=== PATIENT | male | born 1940 | race Caucasian/White ===

== ENCOUNTER → 2018-09-06 16:03 | Outpatient (CLI) | payer MEDICARE, OTHER, SELFPAY ==
--- NOTE | 2018-09-06 16:18 | CT_ITS ---
STUDY: CT ABDOMEN AND PELVIS WITH CONTRAST REASON FOR EXAM: Male, 78 years old. Left lower quadrant pain RADIATION DOSAGE (If Supplied By Facility): CTDIvol = ( 16.52 ) mGy, DLP = ( 767.64 ) mGycm TECHNIQUE: Transaxial images were obtained from the dome of the diaphragm to the symphysis pubis with oral contrast. 100 ml of Isovue 300 contrast was administered. Sagittal and coronal images were reconstructed. Individualized dose optimization techniques were used for this CT. 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 The visualized portions of the heart are within normal limits. Normal liver. There are multiple gallstones. Normal spleen. Normal pancreas. Normal bilateral adrenal glands. Normal right kidney. Normal left kidney. Incidental note is made of a retroaortic left renal vein There is a small hiatal hernia. Normal small intestine. Normal colon. There is non-visualization of the appendix. Normal abdominal aorta. Normal inferior vena cava. Normal retroperitoneum. There is a mildly enlarged prostate impinging upon the inferior bladder There is a fat-containing right inguinal hernia. There are diffuse degenerative changes of the visualized lumbar spine. CT/Abdomen/Pelvis WITH Contrast IMPRESSION: Cholelithiasis, no CT evidence of acute cholecystitis No CT evidence of an acute inflammatory process Prostate enlargement Degenerative bony changes Electronically Signed: Marcelo Ruth MD at 18:59 EST , Service support ,
[2018-09-06 16:48] LABS: Absolute Lymphocyte Count 2.35 X10^3/ul (0.83-4.51); Absolute Neutrophil Count 3.6 X10^3/uL (2.0-7.7); Basophil# 0.01 X10^3/uL; Basophil% 0.2 % (0-1); Eosinophil# 0.16 X10^3/uL; Eosinophils% 2.4 % (0-5); Hematocrit 42.2 % (40-54); Hemoglobin 14.2 g/dl (13.0-16.5); Lymphocyte # 2.35 X10^3/ul (4.0); Lymphocyte % 35.6 % (19-41); Mean Corp Hgb Conc 33.6 g/gl (32-36); Mean Corpuscular Hgb 30.7 pg (27.0-32.0); Mean Corpuscular Volume 91.1 fL (80-94); Mean Platelet Vol. 10.7 fl (6.2-12.0); Monocyte# 0.48 X10^3/uL; Monocyte% 7.3 % (0-10); Neutrophil # 3.59 X10^3/uL (2.7-7.7); Neutrophil % 54.3 % (47-70); Platelet Count 162 K/mm3 (150-450); RBC Distribution Width CV 13.6 % (11.6-14.6); RBC Distribution Width SD 44.6 fl (35.1-43.9); Red Blood Count 4.63 M/mm3 (4.6-6.2); White Blood Count 6.6 K/mm3 (4.4-11.0)
[2018-09-06 17:00] LABS: POSITIVE COUNT NO; POSITIVE DIFFERENTIAL NO; POSITIVE MORPHOLOGY NO
[2018-09-06 17:11] LABS: ALB/GLOB Ratio 1.1 RATIO (0.9-2.4); AST(SGOT) 29 U/L (15-37); Alanine Aminotransfer ALT/SGPT 29 U/L (16-61); Albumin, Serum 3.8 g/dL (3.2-5.0); Alkaline Phosphatase 43 U/L (45-117); Anion Gap 8 (5-15); BUN 23 mg/dL (7-18); BUN/Creat Ratio 18.3 RATIO (10-20); Chloride 106 mmol/L (98-107); Creatinine, Serum 1.26 mg/dL (0.70-1.30); EST Glomerular Filtration Rate 59 mL/min (>60); Est Glom Filt Rate - Afr Amer 71 mL/min (>60); Globulin 3.6 g/dL (2.2-4.2); Glucose 91 mg/dL (74-106); Potassium 4.5 mmol/L (3.5-5.1); Protein, Total 7.4 g/dL (6.4-8.2); Sodium Level 140 mmol/L (136-145)
== END ==
PROVIDERS: Family Provider Family Medicine Geriatric Medicine; PCP Family Medicine Geriatric Medicine; Referring Provider Family Medicine Geriatric Medicine; Visit Provider Family Medicine Geriatric Medicine
DX: R10.9 Unspecified abdominal pain (principal)
CPT/HCPCS: 36415; 74177; 80053; 85025; Q9967

== ENCOUNTER → 2018-09-07 11:23 | Outpatient (CLI) | payer MEDICARE, OTHER, SELFPAY ==
[2018-09-09 12:07] LABS: Lyme IgG P18 Ab Absent (.); Lyme IgG P23 Ab Absent (.); Lyme IgG P28 Ab Absent (.); Lyme IgG P30 Ab Absent (.); Lyme IgG P39 Ab Absent (.); Lyme IgG P41 Ab Absent (.); Lyme IgG P45 Ab Absent (.); Lyme IgG P58 Ab Absent (.); Lyme IgG P66 Ab Absent (.); Lyme IgG P93 Ab Absent (.); Lyme IgM P23 Ab Absent (.); Lyme IgM P39 Ab Absent (.); Lyme IgM P41 Ab Absent (.)
[2018-09-09 13:18] LABS: Lyme IgG WB Interpretation Negative (.); Lyme IgM WB Interpretation Negative (.)
== END ==
PROVIDERS: Family Provider Family Medicine Geriatric Medicine; PCP Family Medicine Geriatric Medicine; Visit Provider Family Medicine Geriatric Medicine
DX: A69.20 Lyme disease, unspecified (principal)
CPT/HCPCS: 36415; 86617

== ENCOUNTER → 2018-09-17 07:29 | Outpatient (CLI) | payer MEDICARE, OTHER, SELFPAY ==
--- NOTE | 2018-09-17 07:37 | ECHOD_ITS ---
Reason For Study: SOB Procedure This was a 2D Doppler, Color Flow transthoracic echocardiogram. The study was technically difficult. Exam performed in department. Left Ventricle Normal LV size. Left ventricular systolic function is normal. The estimated ejection fraction is 60 %. Transmitral diastolic flow velocities suggest moderate (stage 2) diastolic dysfunction (pseudonormal pattern). No regional wall motion abnormalities noted. Right Ventricle Normal RV size. Normal systolic function. Atria Normal left atrium. Normal right atrium. No doppler evidence for ASD. Mitral Valve There is mild mitral annular calcification. Normal mitral valve. Trivial mitral valve insufficiency. Tricuspid Valve Normal tricuspid valve. Trivial tricuspid valve insufficiency. Right ventricular systolic pressure estimated to be 31 mmHg. Aortic Valve Trisinus/trileaflet aortic valve. Mild focal aortic valve thickening. Pulmonic Valve The pulmonic valve is not well visualized. Mild (1+) pulmonic valve insufficiency. Great Vessels Normal sized aortic root. Pericardium/Pleural No pericardial effusion. MMode/2D Measurements & Calculations LVIDd: 4.6 cm IVSd: 1.2 cm Ao root diam: 3.6 cm LVIDs: 3.2 cm LVPWd: 1.3 cm RVDd: 3.0 cm FS: 29.8 % LAV(MOD-bp): 45.2 ml LVAd ap4: 22.6 cm2 SV(MOD-sp4): 43.0 ml LAV(MOD-bp) Indexed: 23.6 ml/m2 EDV(MOD-sp4): 62.2 ml LAV(MOD-sp2): 41.8 ml EDV(sp4-el): 63.2 ml LAV(MOD-sp4): 45.3 ml LVAs ap4: 11.1 cm2 ESV(MOD-sp4): 19.2 ml ESV(sp4-el): 19.8 ml EF(MOD-sp4): 69.1 % EF(sp4-el): 68.7 % SV(sp4-el): 43.4 ml LA A4 area: 17.9 cm2 LA dimension(2D): 3.3 cm RA A4 area: 16.5 cm2 Time Measurements MV dec time: 0.29 sec Doppler Measurements & Calculations MV E max kwame: 65.1 cm/sec Lat Peak E' Kwame: 7.9 cm/sec Med Peak E' Kwame: 6.7 cm/sec MV A max kwame: 59.9 cm/sec E/E' lat: 8.3 E/E' med: 9.7 MV E/A: 1.1 Ao V2 max: 129.3 cm/sec LV V1 max: 114.9 cm/sec PA V2 max: 90.8 cm/sec Ao max P.7 mmHg LV V1 max P.3 mmHg PI end-d kwame: 107.2 cm/sec TR max kwame: 263.9 cm/sec TR max P.9 mmHg Interpretation Summary The study was technically difficult. Left ventricular systolic function is normal. The estimated ejection fraction is 60 %. There is mild mitral annular calcification. Trivial mitral valve insufficiency. Trivial tricuspid valve insufficiency. Mild focal aortic valve thickening. Mild (1+) pulmonic valve insufficiency. Right ventricular systolic pressure estimated to be 31 mmHg. Transmitral diastolic flow velocities suggest diastolic dysfunction (pseudonormal pattern). Ordering Physician: Brannon Mckeon Referring Physician: Brannon Mckeon Chi Performed By: Aarti Caballero, ANTONIACS, RVT
== END ==
PROVIDERS: Family Provider Family Medicine Geriatric Medicine; PCP Family Medicine Geriatric Medicine; Referring Provider Family Medicine Geriatric Medicine; Visit Provider Family Medicine Geriatric Medicine
DX: R06.02 Shortness of breath (principal)
CPT/HCPCS: 93306

== ENCOUNTER → 2018-10-19 15:20 | Outpatient (CLI) | payer MEDICARE, OTHER, SELFPAY ==
--- OUTSIDE RECORDS SUMMARY | 2019-01-21 04:08 | XMS RPT_ITS ---
:1940 Author Organization OHIP Care Team Providers Name Role Phone Navneet Argueta Attending Unavailable Mike, Brannon Chi Referring Unavailable Mkie, Brannon Chi Attending Unavailable Mike, Brannon Chi Referring Unavailable Mike, Brannon Chi Primary Care Unavailable Mike, Brannon Chi Attending Unavailable Mike, Brannon Chi Primary Care Unavailable Mike, Brannon Chi Referring Unavailable Mike, Brannon Chi Attending Unavailable Mike, Brannon Chi Primary Care Unavailable Mike, Brannon Chi Attending Unavailable Mike, Brannon Chi Referring Unavailable Mike, Brannon Chi Primary Care Unavailable Mike, Brannon Chi Attending Unavailable Mike, Brannon Chi Primary Care Unavailable PROBLEMS PROBLEMS DATE TYPE CONDITION / CODE ATTENDING STATUS SOURCE 11/15/2018 Unknown 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, 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, Community unspecified / Hospital E55.9(ICD-10) Repository 11/15/2018 Unknown I10 - Essential Mike, Brannon Chi Active [facility] (primary) Community hypertension / Hospital I10(ICD-10) Repository 10/19/2018 Unknown R68.83 - Chills Mike, Brannon Chi Active [facility] (without fever) / Community R68.83(ICD-10) Hospital Repository 10/12/2018 Unknown R06.02 - Shortness MoodisNavneet bell Active [facility] of breath / Community R06.02(ICD-10) Hospital Repository 09/07/2018 Unknown 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, Community unspecified / Hospital A69.20(ICD-10) Repository 09/06/2018 Unknown R10.9 - Brannon Mckeon Chi Active [facility] Unspecified Community abdominal pain / Hospital R10.9(ICD-10) Repository PROCEDURES PROCEDURES No Procedure Records FoundRESULTS RESULTS CBC W/DIFF, AUTOMATED Collected: 11/15/2018 Status: F Source: AMY 3:06 PM [facility] REPOSITORY TYPE CODE TESTS RESULT OUT OF RANGE REFERENCE UNITS LAB L100.1000 4.4-11.0 K/mm3 Normal WBC 5.7 LAB L100.1200 4.6-6.2 M/mm3 Normal RBC 4.75 LAB L100.1300 13.0-16.5 g/dl Normal HGB 14.4 LAB L100.1400 40-54 % Normal HCT 44.2 LAB L100.1500 80-94 fL Normal MCV 93.1 LAB L100.1600 27.0-32.0 pg Normal MCH 30.3 LAB L100.1700 32-36 g/gl Normal MCHC 32.6 LAB L100.1810 11.6-14.6 % Normal RDW CV 14.3 LAB L100.1820 35.1-43.9 fl High RDW SD 46.7 LAB L100.1900 150-450 K/mm3 Normal PLT 191 LAB L100.2000 6.2-12.0 fl Normal MPV 10.3 LAB L100.2100 47-70 % Normal NEUT% 53.6 LAB L100.2200 19-41 % Normal LY% 34.3 LAB L100.2300 0-10 % Normal MONO% 8.8 LAB L100.2400 0-5 % Normal EO% 2.7 LAB L100.2500 0-1 % Normal BASO% 0.4 LAB L100.2550 0.0-0.9 % Normal IM GRAN % 0.200 Result Comment: IG% - Immature Granulocytes (promyelocytes, myelocytes and metamyelocytes) > 1% indicates that a LEFT SHIFT is Present. LAB L100.2620 2.0-7.7 X10 3/uL Normal Absolute Neut 3.0 LAB L100.2720 0.83-4.51 X10 3/ul Normal Absolute Lymph 1.94 Performed By: #### L100.0100 #### [facility] [address] [place], [address] VITAMIN D,25 HYDROXY Collected: 11/15/2018 Status: F Source: [place] 3:06 PM [facility] REPOSITORY TYPE CODE TESTS RESULT OUT OF REFERENCE UNITS RANGE LAB L506.1000 29.95-100.01 ng/mL Low Vitamin D 23.8 25-OH Result Comment: Vitamin D 25(OH) Status Range Deficiency <20 ng/mL (50nmol/L) Insuffciency 20 - 30 ng/mL (50 - 75 nmol/L) Sufficiency 30 - 100 ng/mL (75 - 250 nmol/L) Toxicity >100 ng/mL (>250 nmol/L) Performed By: #### L506.1000 #### [facility] [address] [place], [address] COMPREHENSIVE METABOLIC Collected: 11/15/2018 Status: F Source: [facility] 3:06 PM [facility] REPOSITORY TYPE CODE TESTS RESULT OUT OF RANGE REFERENCE UNITS LAB L501.0100 74-106 mg/dL Normal GLU 90 Result Comment: Please note revised GLUCOSE reference range effective 2017. LAB L501.1000 7-18 mg/dL High BUN 19 LAB L501.1100 0.70-1.30 mg/dL Normal CREAT,SERUM 1.07 Result Comment: The validity of the calculated GFR AND GFRAA in patients over 70 years has not been determined. Clinical correlation is essential. LAB L501.1110 >60 mL/min Normal EST GFR 71 Result Comment: Non- GFR Calc LAB L501.1115 >60 mL/min Normal EST GFR - AA 86 Result Comment: GFR Calc LAB L501.1300 10-20 RATIO Normal BUN/CRE 17.8 LAB L501.1500 6.4-8.2 g/dL T Normal PROT 6.8 LAB L501.1800 3.2-5.0 g/dL Normal ALB 3.6 LAB L501.1950 2.2-4.2 g/dL Normal GLOB 3.2 LAB L501.2000 0.9-2.4 RATIO Normal A/G 1.1 LAB L501.2200 8.5-10.1 mg/dL CA Normal 9.2 LAB L501.4100 15-37 U/L Normal AST 27 LAB L501.4305 45-117 U/L Low ALK P 41 LAB L501.4405 16-61 U/L Normal ALT 31 LAB L501.4600 0.20-1.00 mg/dL T Normal BILI 0.40 LAB L501.5300 136-145 mmol/L NA Normal 143 LAB L501.5600 3.5-5.1 mmol/L K Normal 4.1 LAB L501.5900 98-107 mmol/L CL Normal 105 LAB L501.6100 21.0-32.0 mmol/L Normal CO2 27.0 LAB L501.6200 5-15 Normal GAP 11 Performed By: #### L500.4050, L501.9520 #### [facility] [address] [place], [place], [address] THYROID STIM HORMONE Collected: 11/15/2018 Status: F Source: [place] (TSH) 3:06 PM [facility] REPOSITORY TYPE CODE TESTS RESULT OUT OF RANGE REFERENCE UNITS LAB L501.9520 0.358-3.74 uIU/mL Normal TSH 1.71 Performed By: #### L500.4050, L501.9520 #### [facility] [address] [place], [address] Observed: 10/19/2018 Status: F Source: [place] RESPIRATORY PANEL 3:30 PM [facility] MOLECULAR REPOSITORY RP PANEL Normal Reference Range = Not Detected RESULTS CALLED TO /NURSE LINE 10/20/18 7589 Michelle Chan. Copy of report sent to Infection Control Printer MS#[id number] 10/20/18 0755 DCANNON. ADENOVIRUS Not Detected HUMAN METAPHNEUMO Not Detected INFLUENZA A Not Detected INFLUENZA A (SUBTYPE H1) Not Detected INFLUENZA A (SUBTYPE H3) Not Detected INFLUENZA B Not Detected PARAINFLUENZA 1 Not Detected PARAINFLUENZA 2 Not Detected PARAINFLUENZA 3 Not Detected PARAINFLUENZA 4 Not Detected RHINOVIRUS Positive for RHINOVIRUS by NAAT technology RSV A Not Detected RSV B Not Detected NAAT METHOD Testing was performed using nucleic acid amplification ORGANISM 1: RHINOVIRUS Performed By: #### M100.638 #### [facility] [address] [place], [address] ECHOCARDIOGRAM COMPLETE Observed: 09/17/2018 Status: F Source: [place] 4:09 PM [facility] REPOSITORY [facility] Cardiovascular Services [address] [place] [address] Echo Complete 09/17/18 0803 MR#: [id number] Acct: [id number] Name: JAVIER DONNELLY Rep #: [id number] : 1940 78 From: Navneet Argueta MD Attending Dr: Mike PASTRANA,Brannon Castro Status: REG CLI Ordering Dr: Brannon Mckeon MD Date: 09/17/18 Location: [facility] Sex: M C Admitted: Reason For Study: SOB Procedure This was a 2D Doppler, Color Flow transthoracic echocardiogram. The study was technically difficult. Exam performed in department. Left Ventricle Normal LV size. Left ventricular systolic function is normal. The estimated ejection fraction is 60 %. Transmitral diastolic flow velocities suggest moderate (stage 2) diastolic dysfunction (pseudonormal pattern). No regional wall motion abnormalities noted. Right Ventricle Normal RV size. Normal systolic function. Atria Normal left atrium. Normal right atrium. No doppler evidence for ASD. Mitral Valve There is mild mitral annular calcification. Normal mitral valve. Trivial mitral valve insufficiency. Tricuspid Valve Normal tricuspid valve. Trivial tricuspid valve insufficiency. Right ventricular systolic pressure estimated to be 31 mmHg. Aortic Valve Trisinus/trileaflet aortic valve. Mild focal aortic valve thickening. Pulmonic Valve The pulmonic valve is not well visualized. Mild (1+) pulmonic valve insufficiency. Great Vessels Normal sized aortic root. Pericardium/Pleural No pericardial effusion. MMode/2D Measurements AND Calculations LVIDd: 4.6 cm IVSd: 1.2 cm Ao root diam: 3.6 cm LVIDs: 3.2 cm LVPWd: 1.3 cm RVDd: 3.0 cm FS: 29.8 % LAV(MOD-bp): 45.2 ml LVAd ap4: 22.6 cm2 SV(MOD-sp4): 43.0 ml LAV(MOD-bp) Indexed: 23.6 ml/m2 EDV(MOD-sp4): 62.2 ml LAV(MOD-sp2): 41.8 ml EDV(sp4-el): 63.2 ml LAV(MOD-sp4): 45.3 ml LVAs ap4: 11.1 cm2 ESV(MOD-sp4): 19.2 ml ESV(sp4-el): 19.8 ml EF(MOD-sp4): 69.1 % EF(sp4-el): 68.7 % SV(sp4-el): 43.4 ml LA A4 area: 17.9 cm2 LA dimension(2D): 3.3 cm RA A4 area: 16.5 cm2 Time Measurements MV dec time: 0.29 sec Doppler Measurements AND Calculations MV E max kwame: 65.1 cm/sec Lat Peak E' Kwame: 7.9 cm/sec Med Peak E' Kwame: 6.7 cm/sec MV A max kwame: 59.9 cm/sec E/E' lat: 8.3 E/E' med: 9.7 MV E/A: 1.1 Ao V2 max: 129.3 cm/sec LV V1 max: 114.9 cm/sec PA V2 max: 90.8 cm/sec Ao max P.7 mmHg LV V1 max P.3 mmHg PI end-d kwame: 107.2 cm/sec TR max kwame: 263.9 cm/sec TR max P.9 mmHg Interpretation Summary The study was technically difficult. Left ventricular systolic function is normal. The estimated ejection fraction is 60 %. There is mild mitral annular calcification. Trivial mitral valve insufficiency. Trivial tricuspid valve insufficiency. Mild focal aortic valve thickening. Mild (1+) pulmonic valve insufficiency. Right ventricular systolic pressure estimated to be 31 mmHg. Transmitral diastolic flow velocities suggest diastolic dysfunction (pseudonormal pattern). Ordering Physician: Brannon Mckeon Referring Physician: Brannon Mckeon Chi Performed By: Aarti Caballero, MARIA D, RVT 09/17/18 1608 Date Navneet Argueta MD CC: Brannon Mckeon MD Date Dictated: 09/17/18 0803 Date Transcribed: 09/17/18 1608 Senior C Developer: Signed LYME ANTIBODIES,W BLOT Collected: 09/07/2018 Status: F Source: AMY 11:25 AM [facility] REPOSITORY TYPE CODE TESTS RESULT OUT OF RANGE REFERENCE UNITS LAB L7000.5920 . Normal P93 Ab Absent LAB L7000.5940 . Normal P66 Ab Absent LAB L7000.5960 . Normal P58 Ab Absent LAB L7000.5980 . Normal P45 Ab Absent LAB L7000.6000 . Normal P41 Ab Absent LAB L7000.6020 . Normal P39 Ab Absent LAB L7000.6040 . Normal P30 Ab Absent LAB L7000.6060 . Normal P28 Ab Absent LAB L7000.6080 . Normal P23 Ab Absent LAB L7000.6100 . Normal P18 Ab Absent LAB L7000.6200 . Normal LYME IgG Negative INTERP Result Comment: Positive: 5 of the following Borrelia-specific bands: 18,23,28,30,39,41,45,58, 66, and 93. Negative: No bands or banding patterns which do not meet positive criteria. LAB L7000.6320 . Normal P41 Ab Absent LAB L7000.6340 . Normal P39 Ab Absent LAB L7000.6360 . Normal P23 Ab Absent LAB L7000.6400 . Normal LYME IgM Negative INTERP Result Comment: Note: An equivocal or positive EIA result followed by a negative Western Blot result is considered NEGATIVE. An equivocal or positive EIA result followed by a positive Western Blot is considered POSITIVE by the CDC. Positive: 2 of the following bands: 23,39 or 41 Negative: No bands or banding patterns which do not meet positive criteria. Criteria for positivity are those recommended by CDC/ASTPHLD. p23=Osp C, j21=nondjljrf Note: Sera from individuals with the following may cross react in the Lyme Western Blot assays: other spirochetal diseases (periodontal disease, leptospirosis, relapsing fever, yaws, and pinta); connective autoimmune (Rheumatoid Arthritis and Systemic Lupus Erythematosus and also individuals with Antinuclear Antibody); other infections (Lydia Spotted Fever; Patricia-Valencia Virus, and Cytomegalovirus). Performed at: - [facility] [id number] Mine Equipment Design Engineer: Tri aPtel MD, Phone: [phone] Performed By: #### L7000.5800 #### [facility] (refer to report for specific site) refer to report for address and phone number ABDOMEN/PELVIS WITH Observed: 09/06/2018 Status: F Source: AMY CONTRAST 4:18 PM [facility] REPOSITORY [facility] Imaging Services [address] [place] [address] Abdomen/Pelvis WITH Contrast MR#: [id number] Acct: [id number] Name: JAVIER DONNELLY Rep #: [id number] : 1940 M 78 From: Felix Ruth MD PCP: Brannon Mckeon MD, Chi Status: REG CLI Study: Abdomen/Pelvis WITH Contrast Date of Exam: 09/06/18 Exam# [id number] Ordering Dr: Brannon Mckeon MD STUDY: CT ABDOMEN AND PELVIS WITH CONTRAST REASON FOR EXAM: Male, 78 years old. Left lower quadrant pain RADIATION DOSAGE (If Supplied By Facility): CTDIvol = ( 16.52 ) mGy, DLP = ( 767.64 ) mGycm TECHNIQUE: Transaxial images were obtained from the dome of the diaphragm to the symphysis pubis with oral contrast. 100 ml of Isovue 300 contrast was administered. Sagittal and coronal images were reconstructed. Individualized dose optimization techniques were used for this CT. 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 The visualized portions of the heart are within normal limits. Normal liver. There are multiple gallstones. Normal spleen. Normal pancreas. Normal bilateral adrenal glands. Normal right kidney. Normal left kidney. Incidental note is made of a retroaortic left renal vein There is a small hiatal hernia. Normal small intestine. Normal colon. There is non-visualization of the appendix. Normal abdominal aorta. Normal inferior vena cava. Normal retroperitoneum. There is a mildly enlarged prostate impinging upon the inferior bladder There is a fat-containing right inguinal hernia. There are diffuse degenerative changes of the visualized lumbar spine. CT/Abdomen/Pelvis WITH Contrast IMPRESSION: Cholelithiasis, no CT evidence of acute cholecystitis No CT evidence of an acute inflammatory process Prostate enlargement Degenerative bony changes Electronically Signed: Marcelo Ruth MD at 18:59 EST , Service support , CC: Brannon Mckeon MD Senior C Developer: Signed CBC W/DIFF, AUTOMATED Collected: 09/06/2018 Status: F Source: AMY 4:04 PM [facility] REPOSITORY TYPE CODE TESTS RESULT OUT OF RANGE REFERENCE UNITS LAB L100.1000 4.4-11.0 K/mm3 Normal WBC 6.6 LAB L100.1200 4.6-6.2 M/mm3 Normal RBC 4.63 LAB L100.1300 13.0-16.5 g/dl Normal HGB 14.2 LAB L100.1400 40-54 % Normal HCT 42.2 LAB L100.1500 80-94 fL Normal MCV 91.1 LAB L100.1600 27.0-32.0 pg Normal MCH 30.7 LAB L100.1700 32-36 g/gl Normal MCHC 33.6 LAB L100.1810 11.6-14.6 % Normal RDW CV 13.6 LAB L100.1820 35.1-43.9 fl High RDW SD 44.6 LAB L100.1900 150-450 K/mm3 Normal PLT 162 LAB L100.2000 6.2-12.0 fl Normal MPV 10.7 LAB L100.2100 47-70 % Normal NEUT% 54.3 LAB L100.2200 19-41 % Normal LY% 35.6 LAB L100.2300 0-10 % Normal MONO% 7.3 LAB L100.2400 0-5 % Normal EO% 2.4 LAB L100.2500 0-1 % Normal BASO% 0.2 LAB L100.2550 0.0-0.9 % Normal IM GRAN % 0.200 Result Comment: IG% - Immature Granulocytes (promyelocytes, myelocytes and metamyelocytes) > 1% indicates that a LEFT SHIFT is Present. LAB L100.2620 2.0-7.7 X10 3/uL Normal Absolute Neut 3.6 LAB L100.2720 0.83-4.51 X10 3/ul Normal Absolute Lymph 2.35 Performed By: #### L100.0100 #### [facility] [address] [place], [address] COMPREHENSIVE METABOLIC Collected: 09/06/2018 Status: F Source: [facility] 4:04 PM [facility] REPOSITORY TYPE CODE TESTS RESULT OUT OF RANGE REFERENCE UNITS LAB L501.0100 74-106 mg/dL Normal GLU 91 Result Comment: Please note revised GLUCOSE reference range effective 2017. LAB L501.1000 7-18 mg/dL High BUN 23 LAB L501.1100 0.70-1.30 mg/dL Normal CREAT,SERUM 1.26 Result Comment: The validity of the calculated GFR AND GFRAA in patients over 70 years has not been determined. Clinical correlation is essential. LAB L501.1110 >60 mL/min Low EST GFR 59 Result Comment: Non- GFR Calc LAB L501.1115 >60 mL/min Normal EST GFR - AA 71 Result Comment: GFR Calc LAB L501.1300 10-20 RATIO Normal BUN/CRE 18.3 LAB L501.1500 6.4-8.2 g/dL T Normal PROT 7.4 LAB L501.1800 3.2-5.0 g/dL Normal ALB 3.8 LAB L501.1950 2.2-4.2 g/dL Normal GLOB 3.6 LAB L501.2000 0.9-2.4 RATIO Normal A/G 1.1 LAB L501.2200 8.5-10.1 mg/dL CA Normal 9.0 LAB L501.4100 15-37 U/L Normal AST 29 LAB L501.4305 45-117 U/L Low ALK P 43 LAB L501.4405 16-61 U/L Normal ALT 29 LAB L501.4600 0.20-1.00 mg/dL T Normal BILI 0.50 LAB L501.5300 136-145 mmol/L NA Normal 140 LAB L501.5600 3.5-5.1 mmol/L K Normal 4.5 LAB L501.5900 98-107 mmol/L CL Normal 106 LAB L501.6100 21.0-32.0 mmol/L Normal CO2 26.0 LAB L501.6200 5-15 Normal GAP 8 Performed By: #### L500.4050 #### [facility] [address] [place], [address] ALLERGIES ALLERGIES DATE TYPE / CODE NAME / CODE REACTION SEVERITY SOURCE 06/16/2014 Drug No Known Unknown [facility] Allergy/4160 Allergies/F00 Hospital 59631(SNOMED 9669548(RXNOR Repository CT) M) ENCOUNTERS ENCOUNTERS ADMIT/DISCHARGE ACCOUNT ADMITTING ENCOUNTER LOCATION SOURCE NUMBER CLASS 11/15/2018 [id number] Ambulatory [place] [facility] 5 [facility] ing:POLAB3 Repository 10/19/2018 [id number] Ambulatory Amy [place] 2 [facility] ing:PSN Repository 09/17/2018 [id number] Ambulatory BMSBuilding:W [place] 7 [facility] Repository 09/17/2018 [id number] Ambulatory Amy [place] 3 [facility] ing:[facility] Repository 09/07/2018 [id number] [facility] ing:POLAB3 Repository 09/06/2018 [id number] Amb[facility] [place] 3 [facility] ing:CT Repository PAYERS PAYERS ENCOUNTER GUARANTOR PAYER SUBSCRIBER SOURCE 11/15/2018 JAVIER Yung Primary JAVIER Reyes [id number] S Insurance:MEDICARE BAHLDOB: [facility] ADOLFO PART A BPolicy [id number] [place], [place] Number: Repository [id number]: [phone] [id number] [phone] () Date:2018-11-15 11/15/2018 Secondary JAVIER Reyes Insurance:RURAL BAHLDOB: Community CARRIER BENEFIT [id number] Hospital PLANPolicy Number: Repository [id number] Date:3103-59-75ZV DANIELLA [address] [place] [address]BQ: 11/15/2018 Tertiary NOT GIVENUNK [place] Insurance:SELF PAY [facility] Number: Effective Repository Date:2018-11-15 10/19/2018 JAVIER E Primary JAVIER Reyes [id number] S Insurance:MEDICARE BAHLDOB: Community ADOLFO PART A [facility] [id number] [place] Number: Repository [id number]: [phone] [id number] [phone] () Date:2018-10-19 10/19/2018 Secondary JAVIER E [place] Insurance:RURAL BAHLDOB: Community CARRIER BENEFIT [id number] Hospital PLANPolicy Number: Repository [id number] Date:1233-46-11LP [facility] [address]KS: 10/19/2018 Tertiary NOT GIVENUNK [place] Insurance:SELF PAY [facility] Number: Effective Repository Date:2018-10-19 09/17/2018 JAVIER E Primary JAVIER E Amy [id number] S Insurance:MEDICARE BAHLDOB: Community ADOLFO PART A [id number] [place] Number[facility] Repository [address]Hvk: [phone] [id number] [phone] () Date:2018-09-07 09/17/2018 Secondary JAVIER E [place] Insurance:RURAL [facility] Community CARRIER BENEFIT [id number] Hospital PLANPolicy Number: Repository [id number] Date:1526-56-44HW [facility] [place] [place] [address]RI: 09/17/2018 Tertiary NOT GIVENUNK [place] Insurance:SELF PAY [facility] Number: Effective Repository Date:2018-09-17 09/17/2018 JAVIER E Primary JAVIER E [place] [id number] S Insurance:MEDICARE BAHLDOB: Community ADOLFO PART A [facility] [id number] [place] Number: Repository [id number]: [phone] [id number] [phone] (HP) Date:2018-09-07 09/17/2018 Secondary JAVIER E [place] Insurance:RURAL BAHLDOB: Community CARRIER BENEFIT [id number] Hospital PLANPolicy Number: Repository [id number] Date:0917-03-10[address] [place] [address]FF: 09/17/2018 Tertiary NOT GIVENUNK [place] Insurance:SELF PAY [facility] Number: Effective Repository Date:2018-09-07 09/07/2018 JAVIER E Primary JAVIER E Amy [id number] S Insurance:MEDICARE BAHLDOB: Community ADOLFO PART A [facility] [id number] Number: Repository [id number]: [phone] [id number] [phone] (HP) Date:2018-09-07 09/07/2018 Secondary JAVIER E [place] Insurance:RURAL [facility] Community CARRIER BENEFIT [id number] Hospital PLANPolicy Number: Repository [id number] Date:0426-66-45KT [facility] [address] [address]RK: 09/07/2018 Tertiary NOT GIVENUNK [place] Insurance:SELF PAY [facility] Number: Effective Repository Date:2018-09-07 09/06/2018 JAVIER E Primary JAVIER E Amy [id number] S Insurance:MEDICARE BAHLDOB: Community ADOLFO PART A [facility] [id number] Number: Repository [id number]: [phone] [id number] [phone] (HP) Date:2018-09-06 09/06/2018 Secondary JAVIER E [place] Insurance:RURAL [facility] Community CARRIER BENEFIT [id number] Hospital PLANPolicy Number: Repository [id number] Date:5739-28-25[address] [address]AV: 09/06/2018 Tertiary NOT GIVENUNK [place] Insurance:SELF PAY [facility] Number: Effective Repository Date:2018-09-06
== END ==
PROVIDERS: Family Provider Family Medicine Geriatric Medicine; PCP Family Medicine Geriatric Medicine; Referring Provider Family Medicine Geriatric Medicine; Visit Provider Family Medicine Geriatric Medicine
DX: R68.83 Chills (without fever) (principal)
CPT/HCPCS: 87633

== ENCOUNTER → 2018-11-15 15:04 | Outpatient (CLI) | payer MEDICARE, OTHER, SELFPAY ==
[2018-11-15 17:46] LABS: Absolute Lymphocyte Count 1.94 X10^3/ul (0.83-4.51); Basophil# 0.02 X10^3/uL; Basophil% 0.4 % (0-1); Eosinophil# 0.15 X10^3/uL; Eosinophils% 2.7 % (0-5); Hematocrit 44.2 % (40-54); Hemoglobin 14.4 g/dl (13.0-16.5); Lymphocyte # 1.94 X10^3/ul (4.0); Lymphocyte % 34.3 % (19-41); Mean Corp Hgb Conc 32.6 g/gl (32-36); Mean Corpuscular Hgb 30.3 pg (27.0-32.0); Mean Corpuscular Volume 93.1 fL (80-94); Mean Platelet Vol. 10.3 fl (6.2-12.0); Monocyte% 8.8 % (0-10); Neutrophil # 3.04 X10^3/uL (2.7-7.7); Neutrophil % 53.6 % (47-70); Platelet Count 191 K/mm3 (150-450); RBC Distribution Width CV 14.3 % (11.6-14.6); RBC Distribution Width SD 46.7 fl (35.1-43.9); Red Blood Count 4.75 M/mm3 (4.6-6.2); White Blood Count 5.7 K/mm3 (4.4-11.0)
[2018-11-15 17:51] LABS: POSITIVE COUNT NO; POSITIVE DIFFERENTIAL NO; POSITIVE MORPHOLOGY NO
[2018-11-15 18:12] LABS: Vitamin D,25 Hydroxy 23.8 ng/mL (29.95-100.01)
[2018-11-15 18:59] LABS: ALB/GLOB Ratio 1.1 RATIO (0.9-2.4); AST(SGOT) 27 U/L (15-37); Alanine Aminotransfer ALT/SGPT 31 U/L (16-61); Albumin, Serum 3.6 g/dL (3.2-5.0); Alkaline Phosphatase 41 U/L (45-117); Anion Gap 11 (5-15); BUN 19 mg/dL (7-18); BUN/Creat Ratio 17.8 RATIO (10-20); Calcium,Total 9.2 mg/dL (8.5-10.1); Chloride 105 mmol/L (98-107); Creatinine, Serum 1.07 mg/dL (0.70-1.30); EST Glomerular Filtration Rate 71 mL/min (>60); Est Glom Filt Rate - Afr Amer 86 mL/min (>60); Globulin 3.2 g/dL (2.2-4.2); Glucose 90 mg/dL (74-106); Potassium 4.1 mmol/L (3.5-5.1); Protein, Total 6.8 g/dL (6.4-8.2); Sodium Level 143 mmol/L (136-145); Thyroid Stim Hormone (TSH) 1.71 uIU/mL (0.358-3.74)
== END ==
PROVIDERS: Family Provider Family Medicine Geriatric Medicine; PCP Family Medicine Geriatric Medicine; Visit Provider Family Medicine Geriatric Medicine
DX: I10 Essential (primary) hypertension (principal); E55.9 Vitamin D deficiency, unspecified
CPT/HCPCS: 36415; 80053; 82306; 84443; 85025

== ENCOUNTER → 2019-11-17 08:50 | Outpatient (CLI) | payer MEDICARE, OTHER, SELFPAY ==
[2019-11-17 13:02] LABS: Absolute Lymphocyte Count 1.77 X10^3/uL (0.83-4.51); Absolute Neutrophil Count 2.1 X10^3/uL (2.0-7.7); Basophil# 0.02 X10^3/uL; Basophil% 0.4 % (0-1); Eosinophil# 0.23 X10^3/uL; Eosinophils% 5.1 % (0-5); Hematocrit 41.1 % (40-54); Hemoglobin 13.3 g/dL (13.0-16.5); Lymphocyte # 1.77 X10^3/ul (4.0); Lymphocyte % 39.4 % (19-41); Mean Corp Hgb Conc 32.4 g/dL (32-36); Mean Corpuscular Hgb 29.8 pg (27.0-32.0); Mean Corpuscular Volume 91.9 fL (80-94); Monocyte# 0.39 X10^3/uL; Monocyte% 8.7 % (0-10); NRBC Flagged by Analyzer 0 % (0-5); Neutrophil # 2.07 X10^3/uL (2.7-7.7); Neutrophil % 46.2 % (47-70); Platelet Count 148 K/mm3 (150-450); RBC Distribution Width CV 13.2 % (11.6-14.6); RBC Distribution Width SD 44.6 fl (35.1-43.9); Red Blood Count 4.47 M/mm3 (4.6-6.2); White Blood Count 4.5 K/mm3 (4.4-11.0)
[2019-11-17 13:18] LABS: Vitamin D,25 Hydroxy 33.6 ng/mL (29.95-100.01)
[2019-11-17 13:23] LABS: AST(SGOT) 41 U/L (15-37); Alanine Aminotransfer ALT/SGPT 35 U/L (16-61); Albumin, Serum 3.6 g/dL (3.2-5.0); Alkaline Phosphatase 47 U/L (45-117); Anion Gap 5 (5-15); BUN 17 mg/dL (7-18); BUN/Creat Ratio 16.7 RATIO (10-20); Calcium,Total 9.4 mg/dL (8.5-10.1); Chloride 107 mmol/L (98-107); Creatinine, Serum 1.02 mg/dL (0.70-1.30); EST Glomerular Filtration Rate 75 mL/min (>60); Est Glom Filt Rate - Afr Amer 90 mL/min (>60); Globulin 3.6 g/dL (2.2-4.2); Glucose 94 mg/dL (74-106); Potassium 3.7 mmol/L (3.5-5.1); Protein, Total 7.2 g/dL (6.4-8.2); Sodium Level 141 mmol/L (136-145); Thyroid Stim Hormone (TSH) 1.52 uIU/mL (0.358-3.74)
== END ==
PROVIDERS: PCP Family Medicine Geriatric Medicine; Visit Provider Family Medicine Geriatric Medicine
DX: I10 Essential (primary) hypertension (principal); E55.9 Vitamin D deficiency, unspecified
CPT/HCPCS: 36415; 80053; 82306; 84443; 85025

== ENCOUNTER → 2020-11-22 09:11 | Outpatient (CLI) | payer MEDICARE, OTHER, SELFPAY ==
[2020-11-22 12:11] LABS: Absolute Lymphocyte Count 1.68 X10^3/uL (0.83-4.51); Absolute Neutrophil Count 2.4 X10^3/uL (2.0-7.7); Basophil# 0.03 X10^3/uL; Basophil% 0.6 % (0-1); Eosinophil# 0.24 X10^3/uL; Hematocrit 42.2 % (40-54); Lymphocyte # 1.68 X10^3/ul (4.0); Lymphocyte % 35.2 % (19-41); Mean Corp Hgb Conc 33.2 g/dL (32-36); Mean Corpuscular Hgb 30.1 pg (27.0-32.0); Mean Corpuscular Volume 90.8 fL (80-94); Mean Platelet Vol. 10.6 fl (6.2-12.0); Monocyte# 0.39 X10^3/uL; Monocyte% 8.2 % (0-10); NRBC Flagged by Analyzer 0 % (0-5); Neutrophil # 2.42 X10^3/uL (2.7-7.7); Neutrophil % 50.8 % (47-70); Platelet Count 185 K/mm3 (150-450); RBC Distribution Width CV 13.2 % (11.6-14.6); Red Blood Count 4.65 M/mm3 (4.6-6.2); White Blood Count 4.8 K/mm3 (4.4-11.0)
[2020-11-22 12:27] LABS: Vitamin D,25 Hydroxy 23.4 ng/mL
[2020-11-22 12:34] LABS: ALB/GLOB Ratio 1.1 RATIO (0.9-2.4); AST(SGOT) 34 U/L (15-37); Alanine Aminotransfer ALT/SGPT 33 U/L (16-61); Albumin, Serum 3.7 g/dL (3.2-5.0); Alkaline Phosphatase 42 U/L (45-117); Anion Gap 4 (5-15); BUN 22 mg/dL (7-18); BUN/Creat Ratio 19.6 RATIO (10-20); Chloride 106 mmol/L (98-107); Creatinine, Serum 1.12 mg/dL (0.70-1.30); EST Glomerular Filtration Rate 67 mL/min (>60); Est Glom Filt Rate - Afr Amer 81 mL/min (>60); Globulin 3.5 g/dL (2.2-4.2); Glucose 109 mg/dL (74-106); Potassium 4.2 mmol/L (3.5-5.1); Protein, Total 7.2 g/dL (6.4-8.2); Sodium Level 139 mmol/L (136-145)
== END ==
PROVIDERS: PCP Family Medicine Geriatric Medicine; Visit Provider Family Medicine Geriatric Medicine
DX: E55.9 Vitamin D deficiency, unspecified (principal); I10 Essential (primary) hypertension
CPT/HCPCS: 36415; 80053; 82306; 84443; 85025

== ENCOUNTER 2021-11-28 08:53 | Outpatient (CLI) | payer MEDICARE, OTHER, SELFPAY ==
--- NOTE | 2021-11-28 10:09 | RAD_ITS ---
STUDY: X-RAY - LEFT SHOULDER REASON FOR EXAM: Male, 81 years old. PAIN TECHNIQUE: 4 view(s) of the shoulder. COMPARISON: None. FINDINGS: Normal glenohumeral articulation. Normal acromioclavicular joint. Normal acromion. Normal humeral head and visualized proximal humerus. The soft tissue structures are unremarkable. Normal visualized pulmonary apex. RAD/Shoulder min 2 Views IMPRESSION: Normal x-ray examination of the shoulder. Electronically Signed: Tai Rae MD at 11:19 EST ,
--- NOTE | 2021-11-28 10:09 | RAD_ITS ---
STUDY: X-RAY - RIGHT KNEE REASON FOR EXAM: Male, 81 years old. PAIN TECHNIQUE: 4 view(s) of the knee. COMPARISON: None. FINDINGS: Normal visualized distal femur. Normal visualized proximal tibia and fibula. Normal proximal tibiofibular articulation. Normal medial femorotibial compartment. Normal lateral femorotibial compartment. Normal patellofemoral articulation. Small joint effusion. RAD/Knee 4 or More Views IMPRESSION: Small joint effusion. Electronically Signed: Tai Rae MD at 11:57 EST ,
[2021-11-28 12:20] LABS: Absolute Lymphocyte Count 1.93 X10^3/uL (0.83-4.51); Absolute Neutrophil Count 3.1 X10^3/uL (2.0-7.7); Basophil# 0.03 X10^3/uL; Basophil% 0.5 % (0-1); Eosinophil# 0.24 X10^3/uL; Eosinophils% 4.2 % (0-5); Hematocrit 44.1 % (40-54); Hemoglobin 14.9 g/dL (13.0-16.5); Lymphocyte # 1.93 X10^3/ul (0.83-4.51); Lymphocyte % 33.4 % (19-41); Mean Corp Hgb Conc 33.8 g/dL (32-36); Mean Corpuscular Hgb 30.4 pg (27.0-32.0); Mean Platelet Vol. 10.4 fl (6.2-12.0); Monocyte# 0.45 X10^3/uL; Monocyte% 7.8 % (0-10); NRBC Flagged by Analyzer 0 % (0-5); Neutrophil # 3.11 X10^3/uL (2.7-7.7); Neutrophil % 53.8 % (47-70); Platelet Count 145 K/mm3 (150-450); RBC Distribution Width CV 13.1 % (11.6-14.6); RBC Distribution Width SD 42.8 fl (35.1-43.9); White Blood Count 5.8 K/mm3 (4.4-11.0)
[2021-11-28 12:54] LABS: ALB/GLOB Ratio 0.9 RATIO (0.9-2.4); AST(SGOT) 27 U/L (15-37); Alanine Aminotransfer ALT/SGPT 30 U/L (16-61); Albumin, Serum 3.6 g/dL (3.2-5.0); Alkaline Phosphatase 64 U/L (45-117); Anion Gap 6 (5-15); BUN 16 mg/dL (7-18); BUN/Creat Ratio 17.4 RATIO (10-20); Chloride 105 mmol/L (98-107); Creatinine, Serum 0.92 mg/dL (0.70-1.30); EST Glomerular Filtration Rate 84 mL/min (>60); Est Glom Filt Rate - Afr Amer 101 mL/min (>60); Globulin 3.8 g/dL (2.2-4.2); Glucose 121 mg/dL (74-106); Potassium 3.9 mmol/L (3.5-5.1); Protein, Total 7.4 g/dL (6.4-8.2); Sodium Level 139 mmol/L (136-145); Thyroid Stim Hormone (TSH) 1.53 uIU/mL (0.358-3.74)
== END 2021-11-28 23:59 | disposition short-term general hospital (02) ==
PROVIDERS: PCP Family Medicine Geriatric Medicine; Visit Provider Family Medicine Geriatric Medicine
DX: E55.9 Vitamin D deficiency, unspecified (principal); I10 Essential (primary) hypertension; M25.561 Pain in right knee; M25.512 Pain in left shoulder
CPT/HCPCS: 36415; 73030; 73564; 80053; 82306; 84443; 85025

== ENCOUNTER 2021-12-16 12:47 | Outpatient (CLI) | payer MEDICARE, OTHER, SELFPAY ==
--- NOTE | 2021-12-16 16:10 | ST.MBS ---
Modified Barium Swallow - Patient Information Study Date: 12/16/21 Study Time: 13:00 Direct Billable Minutes: 70 Total Minutes procedure & reportin Diagnosis: Dysphagia, unspecified (R13.10) Referring Physician: Brannon Mckeon Chi Reason for Referral: Objectively assess swallow function, risk for aspiration, and determine recommendations for least restrictive diet texture and compensatory strategies to improve safety of swallow. Medical History: The patient is an 81 year old male who recently began having the sensation of difficult to chew foods caught in his throat. He reports infrequent coughing from swallowing difficulty (~1X every 2 weeks). When food becomes caught, he feels it clears with water. He denies weight loss, odynophagia, reflux, or recent pneumonias. Pt referred for MBS study to assess concerns for pharyngeal stasis and discomfort. Current Diet Ordered: Regular Textures / Thin Liquids Dentition: WNL Mental Status: WNL Respiratory Status: Oxygenating on Room Air - Penetration-Aspiration Scale Penetration-Aspiration Scale: OBJECTIVE ASSESSMENT OF SWALLOW FUNCTION (QUANTITATIVE ? PER TRIAL): PENETRATION / ASPIRATION SCALE ([place]): 1 = does not enter airway 2 = enters airway/above vocal folds/ejected 3 = enters airway/above vocal folds/not ejected 4 = enters airway/contacts vocal folds/ejected 5 = enters airway/contacts vocal folds/not ejected 6 = enters airway/below vocal folds/ejected 7 = enters airway/below vocal folds/not ejected despite effort 8 = enters airway/below vocal folds/no effort VIDEOFLOROSCOPIC SCALE SCORE ([place]): Grade I = aspiration of material that has penetrated into the laryngeal vestibule, intact cough reflex Grade II = aspiration < 10 % of the bolus, intact cough reflex Grade III = aspiration of < 10 % of the bolus, reduced cough reflex or aspiration of > 10 % of the bolus, intact cough reflex Grade IV = aspiration of > 10 % of the bolus, reduced cough reflex - Penetration-Aspiration Scale Score Thin Liquid via teaspoon Result: 1= does not enter airway Thin Liquid via teaspoon Trial 2 Result: 1= does not enter airway Thin Liquid via small single sip from cup Result: 1= does not enter airway Thin Liquid via sequential sips from cup Result: 1= does not enter airway [place] Thick Liquid via small single sip from cup Result: 1= does not enter airway Honey Thick Liquid via small single sip from cup Result: 1= does not enter airway Pudding Result: 1= does not enter airway Cookie Result: 1= does not enter airway Thin Liquid via small single sip from cup Trial 2 Result: 1= does not enter airway Thin Liquid via single sip from straw Result: 2= enter airway/above vocal folds/ejected Thin Liquid via sequential sips from straw Result: 1= does not enter airway - Oral Phase Labial Seal: No Labial Escape Tongue Control During Bolus Hold: Cohesive bolus between tongue to palatal seal Bolus Preparation/Mastication: Timely and efficient chewing and mashing Bolus Transport/Lingual Motion: Brisk tongue motion Oral Residue: Trace residue lining oral structures - Pharyngeal Phase Initiation of Pharyngeal Swallow: Bolus head at posterior laryngeal surgace of epiglottis Soft Palate Elevation: Trace column of contrast/air between soft palate and pharyngeal wall Laryngeal Elevation: Partial superior movement thyroid cart/partial apprx aryt-epig petiole Anterior Hyoid Excursion: Complete anterior movement Epiglottic Movement: Complete inversion Laryngeal Vestibule Closure at Height of Swallow: Incomplete; narrow column of air/contrast in laryngeal vestibule Pharyngeal Stripping Wave: Present - complete Pharyngoesophageal Segment Opening: Parital distension and partial duration; parital obstruction of flow - CP bar at the level of C6 partially obstructing boluses resulting in retrograde flow through UES. Tongue Base Retraction: Trace column of contrast between tongue base & post. pharyngeal wall Pharyngeal Residue: Collection of residue within or on pharyngeal structures - Esophageal Phase Esophageal Clearance: Esophageal retention w/ retrograde flow through pharyngoesophageal seg - Treatment Strategies Effects of treatment strategies attemped:: Liquid wash = somewhat effective. Multiple swallows = somewhat effective. - Diagnosis/Impression Diagnosis: Swallow function grossly WNL Impression: The patient's swallow function is grossly WNL. He has timely mastication, good bolus control, and brisk tongue motion for A-P transport. He has mildly decreased laryngeal elevation; however, he does have full epiglottic inversion and anterior hyoid excursion. He demonstrated good pharyngeal contraction and only trace pharyngeal residues immediately after the swallow. Pharyngeal residue increased after the swallow due to retrograde flow of thicker boluses through the UES mentioned below. He had one instance of penetration of thin liquid via straw into the laryngeal vestibule above the vocal folds with full ejection. Prominent cricopharyngeal bar located at the C-6 level, resulting in retrograde flow of boluses through UES. This esophageal retention and retrograde bolus flow through the UES was especially observed with thicker viscosities, such as honey thick liquid, pudding, and cookie trials. Esophageal retention improved, but did not fully clear with use of liquid wash. - Recommendations Diet: Regular Textures - Consider moistening dry textures with a sauce, Thin Liquids Compensatory Strategies: Small Bites, Small Sips, Slow Rate, Alternate bites/solids and sips/liquids, Sitting upright, Remain sitting upright for 30 minutes after PO intake Recommend Repeat Modified Barium Swallow: No Need for Skilled Speech Therapy Services: No Recommended Referrals: GI Consult - Prominent cricopharyngeal bar located at the C-6 level, resulting in retrograde flow of boluses through UES. - Status Active ST Patient: Active
== END 2021-12-16 23:59 | disposition home or self-care (01) ==
LOC: RAD 12:49
PROVIDERS: PCP Family Medicine Geriatric Medicine; Referring Provider Family Medicine Geriatric Medicine; Visit Provider Family Medicine Geriatric Medicine
DX: R13.10 Dysphagia, unspecified (principal)
CPT/HCPCS: 74230; 92611

== ENCOUNTER 2022-01-09 13:00 | Outpatient (RCR) | payer MEDICARE, OTHER, SELFPAY ==
--- NOTE | 2021-12-17 13:50 | HP.PTEVAL_ITS ---
Patient's Visit Information JAVIER DONNELLY is a 81 year old M referred to Physical Therapy by Dr. Brannon Mckeon MD with a diagnosis of OA RIGHT KNEE. Date of Evaluation: 12/17/21 Physical Therapist: Becky Galeano PT, Cert MDT - Visit Plan Frequency: 2-3x /Week Duration: 4-6 Weeks Plan: DX: RIGHT KNEE OA. *RIGHT KNEE AND R GROIN PAIN. PAINFUL RIGHT HIP ROM - SEE ABOVE*. RIGHT LE ULTRASOUND, ROM, STRETCHING AND STRENGTHENING TO HELP MEET SET GOALS. - Subjective Work/Leisure: RETIRED. Present symptoms: RIGHT KNEE PAIN. Present since: LAST SUMMER. Pain Scale: WORST 5/10, LEAST 0/10. Currently: 0/10. Commenced as a result of: NO APPARENT REASON. Symptoms at onset: RIGHT KNEE PAIN. Worse: TWISTING AND TURNING IT. GETTING UP FROM A CHAIR, PUTTING RIGHT LEG IN PANTS, GOING UP AND DOWN STEPS - GOING DOWN IS WORSE THAN UP. THROWING RIGHT LEG UP OVER SADDLE TO GET ON HORSE. Better: SITTING STILL. Disturbed sleep: NO. Previous history/Previous treatment: UNREMARKABLE. NO KNEE SURGERY OR PRIOR INJECTIONS. NO PT IN THE PAST. Treatment this episode: RIGHT KNEE CORTISONE INJECTIONS LAST THURSDAY WITH SOME BENEFIT BUT ITS NOT PERFECT'. Gait: DEPENDIING ON THE TERRAIN - SOMETIMES HAS TO WALK MORE CAREFULLY. DOES NOT THINK HE LIMPS. Accidents: MULE ACCIDENT ABOUT 10 YEARS AGO - FULL RECOVERY. Unexplained weight loss: NO. Imaging: RIGHT KNEE X-RAYS -. STUDY: X-RAY - RIGHT KNEE. REASON FOR EXAM: Male, 81 years old. PAIN. TECHNIQUE: 4 view(s) of the knee. COMPARISON: None. FINDINGS: Normal visualized distal femur. Normal visualized proximal tibia and. fibula. Normal proximal tibiofibular articulation. Normal medial femorotibial compartment. Normal lateral femorotibial. compartment. Normal patellofemoral articulation. Small joint effusion. . RAD/Knee 4 or More Views. IMPRESSION: Small joint effusion. . Electronically Signed: Tai Rae MD. at 11:57 EST. PMH/Recent major surgery: L SHLD PAIN. HTN. CURRENT SWOLLOWING ISSUES AND UNDERGOING TESTS. - Objective THIS PATIENT AMBULATES INDEP'LY INTO PT TODAY WITHOUT ANY ASSISTIVE DEVICES OR LOB. UPON ARRIVAL PATIENT REPORTS HE IS NOT HAPPY ABOUT BEING HERE. CADANCE IS FAIR AND NO OBVIOUS LIMPING BUT RIGHT LE ER > LEFT. PATIENT HAS VERY MILD RIGHT KNEE EDEMA COMPARED TO LEFT. NO ACUTE RIGHT KNEE TENDERNESS WITH PALPATION. RIGHT KNEE AROM IN SUPINE WITH A HEEL SLIDE = -5 DEG EXT TO 120 DEG FLEX IN SUPINE WITH A HEEL SLIDE AND PATIENT DENIES INCREASED KNEE PAIN AT WITH ROM TESTING. LLE STRENGTH IS 5/5. RIGHT LE: HIP FLEX 3+ TO 4-/5,HIP ADD 4-/5, HIP ABD 4-/5, HIP IR 3-/5, HIP ER 4-/5, KNEE EXT 3-/5, KNEE FLEX 4/5 ANKLE 5/5. PATIENT WITH PAINFUL AND LIMITED RIGHT HIP IR ROM AND STRENGTH. PATIENT C/O OR RIGHT GROIN PAIN WITH HIP IR AND REPORTS HIS GROIN PAIN IS ACTUALLY WORSE THAN HIS KNEE PAIN. PATIENT REPORTS HE HAS NOT TOLD DR. MCKEON ABOUT HIS GROIN PAIN AND NOW THAT HE THINKS ABOUT IT HE WAS NOTICING IT LAST SUMMER TRYING TO SWING RIGHT LEG UP ON SADDLE TO HORSE BACK RIDE. PATIENT REPORTS HE IS HEADED TO SEE DR. MCKEON AFTER PT ABOUT HIS SWOLLOWING STUDY RESULTS AND HE WILL TELL HIM ABOUT HIS GROIN PAIN. ACTIVE RIGHT HIP FLEXION IN STANDING ALSO EASILY PROVOKES RIGHT GROIN PAIN. PATIENT IS ABLE TO SLS X > 20 SEC ON EA LE WITHOUT UE ASSIST AND DENIES PAIN WITH TESTING. - Balance/Special Test Scores Lower Extremity Functional Score: 69 - Goals Goal 1:: DECREASE C/O RIGHT LE PAIN Goal 2:: IMPROVE ADL, STAIR CLIMBING/DECENDING, AND TRANSFER FUNCTION Goal Time Frame: 4-6 Weeks Goal 3:: PATIENT WILL BE INDEP WITH A HEP FOR CONTINUED IMRPOVEMENT ONCE FORMAL PHYSICAL THERAPY CONCLUDES Goal Time Frame: 4-6 Weeks - Anticipated Interventions Patient/Client Instruction: Educate patient on: Condition, Plan of Care, Risk Factors For the Purpose of:: To improve self management Therapeutic Exercise to Include: Strength training, Flexibilty training, Neuromotor development For the Purpose of:: To decrease pain, To increase ROM, To improve muscle performance and motor function, To improve ability of physical actions for home/community/work/leisure Ultrasound (thermal/non thermal): Yes For the Purpose of:: To decrease pain, To improve nutrient delivery to tissue Thank you for the opportunity to evaluate your patient. For Medicare and Medicare HMO plans, please review the plan of care and approve it. It will need to be FAXED BACK to us at [phone] for Medicare purposes. For Medicare only, by signing this I certify the plan of care. Please let me know if there are questions or concerns regarding this plan of c are. Physician Signature: Date:
--- NOTE | 2022-01-10 09:14 | HP.PTDCSUM ---
It has been my pleasure to treat JAVIER DONNELLY referred by Dr. Brannon Mckeon MD, with the diagnosis of OA RIGHT KNEE for a total of 7 visit(s). Discharge Date: Please see the following information for a summary of their discharge status. Subjective: PATIENT REPORTS HE THINKS IF HE CAN CONTINUE TO DO HIS EXERCISES IT MIGHT HELP MORE BUT HE IS AFRAID IT WILL NEVER COMPLETELY GO AWAY. STATES HE REALY WON'T KNOW HOW MUCH BETTER HE IS UNTIL HE GETS BACK IN THE SADDLE 2-3 TIMES A WEEK THE WEATHER GETS BETTER. REPORTS DR. MCKEON IS NOW AWARE OF HIS GROIN PAIN. WALKED IN THE [place] DOING [employer]OL[employer] WORK FOR ABOUT 2 HOURS YESTERDAY WITH NO PROBLEMS AND SLEPT WELL THAT NIGHT AND WAS PLEASED. STATES THAT CERTAIN ONES OF HIS HEP SEEM TO GET TO THE SOURCE. R knee Pain Intensity (Out of 10): 0 R hip Pain Intensity (Out of 10): 0 % Improvement: 35 Objective/Function: PATIENT WAS SEEN TODAY FOR RE-ASSESSMENT OF PROGRESS TOWARD THE SET PT GOALS AND THE NEED FOR FURTHER PHYSICAL THERAPY VS READINESS FOR DISCHARGE. PATIENT SCORED THE SAME OR HIGHER ON THE LOWER EXTREMITY FUNCTIONAL SCALE EXCEPT RUNNING AND HOPPING. HE IS INDEP WITH A HEP AND APPROPRIATE FOR DISCHARGE TO [facility] AND FOLLOW UP WITH DR. MCKEON ABOUT BOTH HIS RIGHT KNEE AND HIP. UPON EXAM TODAY: PATIENT CONTINUES TO HAVE MILD RIGHT KNEE EDEMA COMPARED TO LEFT. NO ACUTE RIGHT KNEE TENDERNESS WITH PALPATION. RIGHT KNEE AROM IN SUPINE WITH A HEEL SLIDE = -3 DEG EXT TO 128 DEG FLEX IN SUPINE WITH A HEEL SLIDE AND PATIENT DENIES INCREASED KNEE PAIN WITH ROM TESTING. LLE STRENGTH IS 5/5. RIGHT LE: HIP FLEX 4-/5,HIP ADD 4-/5, HIP ABD 4-/5, HIP IR 3-/5, HIP ER 4-/5, KNEE EXT 3-/5, KNEE FLEX 4/5 ANKLE 5/5. PATIENT WITH PAINFUL AND LIMITED RIGHT HIP IR ROM AND STRENGTH. PATIENT C/O RIGHT GROIN PAIN WITH HIP IR TESTING AND STILL REPORTS HIS GROIN PAIN IS ACTUALLY WORSE THAN HIS KNEE PAIN (WHICH HE STATES HE REPORTED TO DR. MCKEON). ACTIVE RIGHT HIP FLEXION IN STANDING ALSO PROVOKES RIGHT GROIN PAIN BUT NOT MUCH AT INITIAL EVAL. THER EX DURING THIS EPISODE OF CARE HAS INCLUDED: LE NuStep: L3 x5 min for knee ROM/LE endurance. Banded Bridges: teal 2x15. Hook lying December: teal 2x15 ea. S/L Right Clams: teal 2x15. Prone Hip Extension: teal/knees 2x10 ea. Lateral Band Walks: teal/knees 32'x2 laps. Hook lying Static Hip Add Squeeze: [id number] sec holds ea at 4 and 12 apart. Dynamic R Seated Hip Adduction: GTB 1x10, focus eccentric control. Standing Right Hip Adductor Stretch, standing lateral w/ Right leg on 3rd stair step. Standing Dynamic Add Stretch (Open [place] Door). Inchworms, clams, banded bridges. SLR, knee flexion stretch on box, HS stretch on box, calf stretch on step. Goal 1:: DECREASE C/O RIGHT LE PAIN Goal Progress: Progressing Goal 2:: IMPROVE ADL, STAIR CLIMBING/DECENDING, AND TRANSFER FUNCTION Goal Progress: Progressing Goal 3:: PATIENT WILL BE INDEP WITH A HEP FOR CONTINUED IMRPOVEMENT ONCE FORMAL PHYSICAL THERAPY CONCLUDES Goal Progress: Goal Met Plan: RECOMMENDED FOLLOW UP WITH DR. MCKEON ABOUT ON-GOING RIGHT KNEE AND HIP PAIN. D/C TO HEP AT PATIENTS REQUEST. PATIENT MAY BENEFIT FROM MORE PT TO HELP FURTHER IMPROVE SYMPTOMS ALONG WITH ANY OTHER RECOMMENDED INTERVENTIONS IN THE FUTURE. If there are questions or concerns regarding this patient's physical therapy, please feel free to call me at [phone]. Thank you for the referral of this patient. Sincerely, Becky Galeano, PT, Cert MDT Balance/Gait/Functional tests - Balance/Special Test Scores Lower Extremity Functional Score: 63
== END 2022-01-09 19:00 | disposition home or self-care (01) ==
LOC: PT 13:00
PROVIDERS: PCP Family Medicine Geriatric Medicine; Referring Provider Family Medicine Geriatric Medicine; Visit Provider Family Medicine Geriatric Medicine
DX: M25.561 Pain in right knee (principal)
CPT/HCPCS: 97110; 97162; 97164

== ENCOUNTER → 2022-12-04 | Outpatient (CLI) | payer MEDICARE, OTHER, SELFPAY ==
[2022-12-04 12:49] LABS: Absolute Lymphocyte Count 2.28 X10^3/uL (0.83-4.51); Absolute Neutrophil Count 2.4 X10^3/uL (2.0-7.7); Basophil# 0.02 X10^3/uL; Basophil% 0.4 % (0-1); Eosinophil# 0.24 X10^3/uL; Eosinophils% 4.6 % (0-5); Hematocrit 44.7 % (40-54); Hemoglobin 14.8 g/dL (13.0-16.5); Lymphocyte # 2.28 X10^3/ul (0.83-4.51); Lymphocyte % 43.3 % (19-41); Mean Corp Hgb Conc 33.1 g/dL (32-36); Mean Corpuscular Volume 90.7 fL (80-94); Mean Platelet Vol. 10.5 fl (6.2-12.0); Monocyte# 0.36 X10^3/uL; Monocyte% 6.8 % (0-10); NRBC Flagged by Analyzer 0 % (0-5); Neutrophil # 2.35 X10^3/uL (2.7-7.7); Neutrophil % 44.7 % (47-70); Platelet Count 135 K/mm3 (150-450); RBC Distribution Width CV 13.3 % (11.6-14.6); RBC Distribution Width SD 44.4 fl (35.1-43.9); Red Blood Count 4.93 M/mm3 (4.6-6.2); White Blood Count 5.3 K/mm3 (4.4-11.0)
[2022-12-04 13:42] LABS: ALB/GLOB Ratio 0.9 RATIO (0.9-2.4); AST(SGOT) 33 U/L (15-37); Alanine Aminotransfer ALT/SGPT 33 U/L (16-61); Albumin, Serum 3.7 g/dL (3.2-5.0); Alkaline Phosphatase 59 U/L (45-117); Anion Gap 7 (5-15); BUN 19 mg/dL (7-18); BUN/Creat Ratio 19.3 RATIO (10-20); Calcium,Total 9.3 mg/dL (8.5-10.1); Chloride 106 mmol/L (98-107); Creatinine, Serum 0.98 mg/dL (0.70-1.30); EST Glomerular Filtration Rate 77 mL/min (>60); Est Glom Filt Rate - Afr Amer 94 mL/min (>60); Globulin 3.9 g/dL (2.2-4.2); Glucose 103 mg/dL (74-106); Potassium 3.4 mmol/L (3.5-5.1); Protein, Total 7.6 g/dL (6.4-8.2); Sodium Level 141 mmol/L (136-145)
[2022-12-04 14:30] LABS: Vitamin D,25 Hydroxy 29.7 ng/mL
== END | disposition home or self-care (01) ==
LOC: POLAB3 08:59
PROVIDERS: PCP Family Medicine Geriatric Medicine; Visit Provider Family Medicine Geriatric Medicine
DX: E55.9 Vitamin D deficiency, unspecified (principal); I10 Essential (primary) hypertension
CPT/HCPCS: 36415; 80053; 82306; 84443; 85025

== ENCOUNTER → 2023-01-19 | Outpatient (CLI) | payer MEDICARE, OTHER, SELFPAY ==
[2023-01-19 11:23] LABS: PSA,Total- Diagnostic 1.42 ng/mL (0.0-4.0)
== END | disposition home or self-care (01) ==
LOC: LAB 10:01
PROVIDERS: PCP Family Medicine Geriatric Medicine; Referring Provider Urology; Visit Provider Urology
DX: N40.1 Benign prostatic hyperplasia with lower urinary tract symptoms (principal)
CPT/HCPCS: 36415; 84153

== ENCOUNTER → 2023-12-10 | Outpatient (CLI) | payer MEDICARE, OTHER, SELFPAY ==
[2023-12-10 10:35] LABS: Absolute Lymphocyte Count 1.85 X10^3/uL (0.83-4.51); Absolute Neutrophil Count 2.5 X10^3/uL (2.0-7.7); Basophil# 0.04 X10^3/uL; Basophil% 0.8 % (0-1); Eosinophil# 0.27 X10^3/uL; Eosinophils% 5.3 % (0-5); Hematocrit 41.1 % (40-54); Hemoglobin 13.6 g/dL (13.0-16.5); Lymphocyte # 1.85 X10^3/ul (0.83-4.51); Mean Corp Hgb Conc 33.1 g/dL (32-36); Mean Corpuscular Hgb 30.5 pg (27.0-32.0); Mean Corpuscular Volume 92.2 fL (80-94); Mean Platelet Vol. 9.4 fl (6.2-12.0); Monocyte# 0.43 X10^3/uL; Monocyte% 8.4 % (0-10); NRBC Flagged by Analyzer 0 % (0-5); Neutrophil # 2.54 X10^3/uL (2.7-7.7); Neutrophil % 49.3 % (47-70); Platelet Count 161 K/mm3 (150-450); RBC Distribution Width CV 13.1 % (11.6-14.6); RBC Distribution Width SD 44.3 fl (35.1-43.9); Red Blood Count 4.46 M/mm3 (4.6-6.2); White Blood Count 5.1 K/mm3 (4.4-11.0)
[2023-12-10 10:52] LABS: Vitamin D,25 Hydroxy 29.6 ng/mL
[2023-12-10 11:47] LABS: ALB/GLOB Ratio 0.9 RATIO (0.9-2.4); AST(SGOT) 27 U/L (15-37); Alanine Aminotransfer ALT/SGPT 33 U/L (16-61); Albumin, Serum 3.5 g/dL (3.2-5.0); Alkaline Phosphatase 68 U/L (45-117); Anion Gap 6 (5-15); BUN 17 mg/dL (7-18); Calcium,Total 9.3 mg/dL (8.5-10.1); Chloride 106 mmol/L (98-107); Creatinine, Serum 0.94 mg/dL (0.70-1.30); EST Glomerular Filtration Rate 81 mL/min (>60); Est Glom Filt Rate - Afr Amer 98 mL/min (>60); Globulin 3.8 g/dL (2.2-4.2); Glucose 102 mg/dL (74-106); Potassium 4.1 mmol/L (3.5-5.1); Protein, Total 7.3 g/dL (6.4-8.2); Sodium Level 138 mmol/L (136-145); Thyroid Stim Hormone (TSH) 1.45 uIU/mL (0.358-3.74)
== END | disposition home or self-care (01) ==
LOC: POLAB3 09:21
PROVIDERS: PCP Family Medicine Geriatric Medicine; Visit Provider Family Medicine Geriatric Medicine
DX: I10 Essential (primary) hypertension (principal); E55.9 Vitamin D deficiency, unspecified
CPT/HCPCS: 36415; 80053; 82306; 84443; 85025

== ENCOUNTER → 2024-01-21 | Outpatient (CLI) | payer MEDICARE, OTHER, SELFPAY ==
[2024-01-21 15:58] LABS: PSA,Total - Annual Screen 2.03 ng/mL (0.00-4.00)
== END | disposition home or self-care (01) ==
LOC: LAB 14:35
PROVIDERS: PCP Family Medicine Geriatric Medicine; Visit Provider Nurse Practitioner
DX: Z12.5 Encounter for screening for malignant neoplasm of prostate (principal)
CPT/HCPCS: 36415; 84153; G0103

== ENCOUNTER → 2024-03-30 | Outpatient (CLI) | payer MEDICARE, OTHER, SELFPAY | END | disposition home or self-care (01) | PROVIDERS: Visit Provider Urology | DX: R31.0 Gross hematuria (principal) | CPT/HCPCS: 87077; 87086; 87088; 87186 ==

== ENCOUNTER → 2024-06-30 | Outpatient (CLI) | payer MEDICARE, OTHER, SELFPAY ==
--- NOTE | 2024-06-30 10:13 | RAD_ITS ---
EXAM: XR CHEST, 2 VIEWS CLINICAL INDICATION: CHEST PAIN,UNSPECIFIED TECHNIQUE: Frontal and lateral views of the chest. COMPARISON: 06/16/2014. FINDINGS: LUNGS AND PLEURAL SPACES: Unremarkable. No consolidation or edema. No pneumothorax. No effusion. HEART: Unremarkable. Cardiac silhouette not enlarged. MEDIASTINUM: Central airways and mediastinal contour are unremarkable. BONES/JOINTS: Unremarkable. No acute fracture. SOFT TISSUES: Unremarkable. RAD/Chest PA and Lateral IMPRESSION: No acute cardiopulmonary abnormality. Electronically Signed: Henok Bright MD at 7:21 EDT ,
[2024-06-30 10:40] LABS: Absolute Lymphocyte Count 1.31 X10^3/uL (0.83-4.51); Absolute Neutrophil Count 2.6 X10^3/uL (2.0-7.7); Basophil# 0.02 X10^3/uL; Basophil% 0.4 % (0-1); Eosinophil# 0.19 X10^3/uL; Eosinophils% 4.2 % (0-5); Hematocrit 40.7 % (40-54); Hemoglobin 13.4 g/dL (13.0-16.5); Lymphocyte # 1.31 X10^3/ul (0.83-4.51); Lymphocyte % 29.2 % (19-41); Mean Corp Hgb Conc 32.9 g/dL (32-36); Mean Corpuscular Hgb 29.8 pg (27.0-32.0); Mean Corpuscular Volume 90.6 fL (80-94); Mean Platelet Vol. 9.9 fl (6.2-12.0); Monocyte# 0.33 X10^3/uL; Monocyte% 7.4 % (0-10); NRBC Flagged by Analyzer 0 % (0-5); Neutrophil # 2.61 X10^3/uL (2.7-7.7); Neutrophil % 58.4 % (47-70); Platelet Count 128 K/mm3 (150-450); RBC Distribution Width CV 13.5 % (11.6-14.6); RBC Distribution Width SD 44.8 fl (35.1-43.9); Red Blood Count 4.49 M/mm3 (4.6-6.2); White Blood Count 4.5 K/mm3 (4.4-11.0)
[2024-06-30 11:08] LABS: AST(SGOT) 30 U/L (15-37); Alanine Aminotransfer ALT/SGPT 33 U/L (16-61); Albumin, Serum 3.4 g/dL (3.2-5.0); Alkaline Phosphatase 63 U/L (45-117); Anion Gap 3 (5-15); BUN 15 mg/dL (7-18); BUN/Creat Ratio 17.6 RATIO (10-20); CPK Total, Creatine Kinase 145 U/L (39-308); Calcium,Total 9.2 mg/dL (8.5-10.1); Chloride 108 mmol/L (98-107); Creatinine, Serum 0.85 mg/dL (0.70-1.30); EST Glomerular Filtration Rate 91 mL/min (>60); Est Glom Filt Rate - Afr Amer 110 mL/min (>60); Globulin 3.5 g/dL (2.2-4.2); Glucose 115 mg/dL (74-106); Potassium 4.3 mmol/L (3.5-5.1); Protein, Total 6.9 g/dL (6.4-8.2); Sodium Level 141 mmol/L (136-145)
[2024-06-30 11:12] LABS: D-Dimer Quantitative (DVT/PE) 0.75 FEU/ug/m (0.27-0.49)
[2024-06-30 13:31] LABS: BNP,B-Type NATRIURETIC PEPTIDE 31.5 pg/mL (0-100)
[2024-07-01 13:08] LABS: Myoglobin, Serum 115 ng/mL (28-72)
== END | disposition home or self-care (01) ==
PROVIDERS: PCP Family Medicine Geriatric Medicine; Referring Provider Family Medicine Geriatric Medicine; Visit Provider Family Medicine Geriatric Medicine
DX: R07.9 Chest pain, unspecified (principal); R53.83 Other fatigue
CPT/HCPCS: 36415; 71046; 80053; 82550; 83874; 83880; 84443; 85025; 85379

== ENCOUNTER → 2024-06-30 | Outpatient (CLI) | payer MEDICARE, OTHER, SELFPAY ==
--- NOTE | 2024-06-30 14:02 | CT_ITS ---
STUDY: CTA CHEST REASON FOR EXAM: Male, 84 years old. CHEST PAIN and 3 day history of shortness of breath. RADIATION DOSAGE (If Supplied By Facility): CTDIvol = ( 12.72 ) mGy, DLP = ( 409.96 ) mGycm TECHNIQUE: The examination was performed with the intravenous administration of IV 100mL Isovue-370. Post-processing of the angiographic images was performed, with multiplanar reformation and 3D reconstruction. Individualized dose optimization techniques were used for this CT. COMPARISON: None. FINDINGS: Normal enhancement of the main pulmonary artery and right and left pulmonary arteries. Normal enhancement of the bilateral peripheral pulmonary arteries. There is no demonstrated pulmonary embolism. There is atherosclerotic calcification of the aortic arch with tortuosity. There is no demonstrated aortic dissection. There are calcifications of the coronary arteries. There are visualized mediastinal lymph nodes, which are within normal size limits, and with normal morphology. Normal hilar regions. Normal visualized trachea and bronchi. The lungs are well expanded. Mild degree of increased markings at the lung bases suggestive of bibasilar scarring. Normal pleura. Normal chest wall structures. There are degenerative changes of thoracic spine. There are multiple small layering gallstones along the dependent portion of the gallbladder lumen. CT/CTA Chest W/WO Contrast IMPRESSION: No evidence of pulmonary embolism. Findings suggest some mild scarring at the lung bases. Coronary artery calcification. Small layering gallstones along the dependent portion of the gallbladder lumen. Electronically Signed: Tai Rae MD at 15:01 EDT ,
== END | disposition home or self-care (01) ==
LOC: CT 14:02
PROVIDERS: PCP Family Medicine Geriatric Medicine; Referring Provider Family Medicine Geriatric Medicine; Visit Provider Family Medicine Geriatric Medicine
DX: R07.9 Chest pain, unspecified (principal)
CPT/HCPCS: 71275; Q9967

== ENCOUNTER → 2024-07-01 | Outpatient (CLI) | payer MEDICARE, OTHER, SELFPAY ==
[2024-07-01 11:00] LABS: Troponin-I HS 7 pg/mL (3.0-78.0)
== END | disposition home or self-care (01) ==
PROVIDERS: PCP Family Medicine Geriatric Medicine; Visit Provider Family Medicine Geriatric Medicine
DX: R07.9 Chest pain, unspecified (principal)
CPT/HCPCS: 36415; 84484

== ENCOUNTER → 2024-07-07 | Outpatient (CLI) | payer MEDICARE, OTHER, SELFPAY | END | disposition home or self-care (01) | LOC: PSN 09:06 | PROVIDERS: PCP Family Medicine Geriatric Medicine; Referring Provider Family Medicine Geriatric Medicine; Visit Provider Family Medicine Geriatric Medicine | DX: R07.9 Chest pain, unspecified (principal); I44.4 Left anterior fascicular block; R06.02 Shortness of breath | CPT/HCPCS: 94060 ==

== ENCOUNTER → 2024-07-21 | Outpatient (CLI) | payer MEDICARE, OTHER, SELFPAY ==
--- NOTE | 2024-07-21 07:18 | ECHOD_ITS ---
Reason For Study: CHEST PAIN Procedure This was a 2D Doppler, Color Flow transthoracic echocardiogram. The study was technically difficult. Exam performed in department. Left Ventricle Mild concentric left ventricular hypertrophy. Normal LV size. The left ventricular ejection fraction is 65 %. Diastolic function is indeterminate. Right Ventricle Normal right ventricle. Atria The left and right atria are normal. Mitral Valve There is Moderate focal posterior mitral annular calcification. Trivial mitral valve insufficiency. Tricuspid Valve Normal tricuspid valve. Aortic Valve Trisinus/trileaflet aortic valve. Trivial aortic valve insufficiency. Pulmonic Valve The pulmonic valve is not well visualized. Great Vessels Normal sized aortic root. Pericardium/Pleural No pericardial effusion. MMode/2D Measurements & Calculations LVIDd: 4.6 cm IVSd: 1.2 cm LVOT diam: 2.0 cm LVIDs: 2.5 cm LVPWd: 0.93 cm LVOT area: 3.1 cm2 RVDd: 3.0 cm FS: 46.0 % asc Aorta Diam: 3.1 cm LAV(MOD-bp): 44.8 ml LVAd ap4: 22.1 cm2 LAV(MOD-bp) Indexed: 23.5 ml/m2 LVLd ap4: 7.1 cm LAV(MOD-sp2): 47.5 ml EDV(MOD-sp4): 56.9 ml LAV(MOD-sp4): 42.0 ml EDV(sp4-el): 58.4 ml LVAs ap4: 11.6 cm2 LVLs ap4: 5.8 cm ESV(MOD-sp4): 20.1 ml ESV(sp4-el): 19.8 ml EF(MOD-sp4): 64.7 % EF(sp4-el): 66.1 % LVAd ap2: 17.7 cm2 SV(MOD-sp4): 36.8 ml SV(MOD-sp2): 20.2 ml LVLd ap2: 7.5 cm EDV(MOD-sp2): 34.9 ml EDV(sp2-el): 35.8 ml LVAs ap2: 10.4 cm2 LVLs ap2: 6.4 cm ESV(MOD-sp2): 14.7 ml ESV(sp2-el): 14.4 ml EF(MOD-sp2): 57.9 % SV(sp4-el): 38.6 ml Ao sinus diam: 3.[address] Junction: 2.8 cm LA dimension(2D): 4.0 cm LA A4 area: 17.1 cm2 RA A4 area: 11.3 cm2 TAPSE: 2.0 cm Time Measurements MV dec time: 0.24 sec Doppler Measurements & Calculations MV E max kwame: 95.0 cm/sec Lat Peak E' Kwame: 8.5 cm/sec Med Peak E' Kwame: 9.0 cm/sec MV A max kwame: 81.0 cm/sec E/E' lat: 11.2 E/E' med: 10.6 MV E/A: 1.2 MV dec slope: 400.8 cm/sec2 Ao V2 max: 133.7 cm/sec LV V1 max: 110.5 cm/sec Ao max P.2 mmHg LV V1 max P.9 mmHg Ao V2 mean: 86.6 cm/sec LV V1 mean P.0 mmHg Ao mean P.4 mmHg LV V1 mean: 83.3 cm/sec Ao V2 VTI: 29.0 cm LV V1 VTI: 28.5 cm AV (velocity ratio): 0.98 RADHA(I,D): 3.1 cm2 RADHA(V,D): 2.6 cm2 SV(LVOT): 88.6 ml PA V2 max: 106.9 cm/sec PA max PG (full): 1.4 mmHg ECHO/Echo Complete Interpretation Summary The study was technically difficult. Mild concentric left ventricular hypertrophy. The left ventricular ejection fraction is 65 %. Diastolic function is indeterminate. There is Moderate focal posterior mitral annular calcification. Ordering Physician: Brannon Mckeon Chi Referring Physician: Brannon Mckeon Chi Performed By: Evita Lott KAJAL
--- NOTE | 2024-07-21 12:49 | STRESSREP_ITS ---
Stress Test Report Date: 07/21/2024 Procedure: Pharmacologic stress nuclear imaging study Indications: Chest pain Consent: Per the patient Procedure: The patient underwent pharmacologic (Regadenoson 0.4mg ) evaluation with a peak heart rate of 85 beats per minute (62%predicted maximal heart rate) and a peak blood pressure of 140/68 mmHg. The baseline ECG demonstrated sinus rhythm. The peak pharmacologic ECG demonstrated no ischemic changes. Frequent PVCs pretest, during infusion and in recovery. There was no complaint of chest discomfort during pharmacologic infusion or recovery. The patient was injected with 11.7 millicuries of technetium 99m Cardiolite and subsequently rest SPECT Cardiolite nuclear imaging was obtained in the horizo ntal long, vertical long, and short axis views. The patient underwent pharmacologic (Regadenoson) evaluation. The patient was injected with 34.6 millicuries of technetium 99m Cardiolite and subsequently stress SPECT Cardiolite nuclear imaging was obtained in the horizontal long, vertical long, and short axis views. No gated study was done. The examination was stopped secondary to completion of protocol. Rest and stress SPECT Cardiolite nuclear imaging status post realignment, normalization, and attenuation correction demonstrate no fixed or reversible perfusion defects. No gated study available. Impression: 1. Pharmacologic (Regadenoson) evaluation 2. Peak pharmacologic ECG with no ischemic changes. 3. Frequent PVCs pretest, during pharmacological infusion, and in recovery. 5. Rest and stress SPECT Cardiolite nuclear imaging demonstrate relative uniform tracer uptake and myocardial perfusion appearing within normal limits. 6. No gated study done. This note was generated with Sellywhereation software. It may contain incorrect words, spelling, and punctuation that were not noted in checking the note before signing.
== END | disposition home or self-care (01) ==
LOC: CVS 07:13
PROVIDERS: PCP Family Medicine Geriatric Medicine; Referring Provider Family Medicine Geriatric Medicine; Visit Provider Family Medicine Geriatric Medicine
DX: R06.02 Shortness of breath (principal); R07.9 Chest pain, unspecified; I44.4 Left anterior fascicular block
CPT/HCPCS: 78452; 93017; 93306; A9500; A4216; J2785

== ENCOUNTER → 2024-09-07 | Outpatient (CLI) | payer MEDICARE, OTHER, SELFPAY | END | disposition home or self-care (01) | LOC: PSN 11:45 | PROVIDERS: PCP Family Medicine Geriatric Medicine; Referring Provider Internal Medicine Cardiovascular Disease; Visit Provider Internal Medicine Cardiovascular Disease | DX: R00.2 Palpitations (principal) | CPT/HCPCS: 93225; 93226 ==

== ENCOUNTER → 2024-10-05 | Outpatient (CLI) | payer MEDICARE, OTHER, SELFPAY | END | disposition home or self-care (01) | LOC: PSN 08:58 | PROVIDERS: PCP Family Medicine Geriatric Medicine; Referring Provider Physician Assistant Medical; Visit Provider Physician Assistant Medical | DX: I49.3 Ventricular premature depolarization (principal) | CPT/HCPCS: 93225; 93226 ==

== ENCOUNTER → 2024-12-12 | Outpatient (CLI) | payer MEDICARE, OTHER, SELFPAY ==
[2024-12-12 09:46] LABS: Absolute Lymphocyte Count 2.66 X10^3/uL (0.83-4.51); Absolute Neutrophil Count 2.5 X10^3/uL (2.0-7.7); Basophil# 0.04 X10^3/uL; Basophil% 0.7 % (0-1); Eosinophil# 0.32 X10^3/uL; Eosinophils% 5.4 % (0-5); Hemoglobin 14.6 g/dL (13.0-16.5); Lymphocyte # 2.66 X10^3/ul (0.83-4.51); Lymphocyte % 44.6 % (19-41); Mean Corpuscular Volume 91.3 fL (80-94); Mean Platelet Vol. 10.3 fl (6.2-12.0); Monocyte# 0.43 X10^3/uL; Monocyte% 7.2 % (0-10); NRBC Flagged by Analyzer 0 % (0-5); Neutrophil # 2.51 X10^3/uL (2.7-7.7); Neutrophil % 41.9 % (47-70); Platelet Count 145 K/mm3 (150-450); RBC Distribution Width CV 13.4 % (11.6-14.6); RBC Distribution Width SD 45.4 fl (35.1-43.9); Red Blood Count 4.71 M/mm3 (4.6-6.2)
[2024-12-12 10:21] LABS: ALB/GLOB Ratio 0.9 RATIO (0.9-2.4); AST(SGOT) 45 U/L (15-37); Alanine Aminotransfer ALT/SGPT 36 U/L (16-61); Albumin, Serum 3.5 g/dL (3.2-5.0); Alkaline Phosphatase 59 U/L (45-117); Anion Gap 7 (5-15); BUN 20 mg/dL (7-18); BUN/Creat Ratio 21.2 RATIO (10-20); Calcium,Total 9.1 mg/dL (8.5-10.1); Chloride 106 mmol/L (98-107); Creatinine, Serum 0.94 mg/dL (0.70-1.30); EST Glomerular Filtration Rate 80 mL/min (>60); Est Glom Filt Rate - Afr Amer 97 mL/min (>60); Globulin 3.8 g/dL (2.2-4.2); Glucose 148 mg/dL (74-106); Potassium 4.4 mmol/L (3.5-5.1); Protein, Total 7.3 g/dL (6.4-8.2); Sodium Level 140 mmol/L (136-145)
[2024-12-12 15:43] LABS: Hemoglobin A1c 5.7 % (3.8-5.6)
== END | disposition home or self-care (01) ==
LOC: POLAB3 08:59
PROVIDERS: PCP Family Medicine Geriatric Medicine; Visit Provider Family Medicine Geriatric Medicine
DX: I10 Essential (primary) hypertension (principal); E55.9 Vitamin D deficiency, unspecified; R73.9 Hyperglycemia, unspecified
CPT/HCPCS: 36415; 80053; 82306; 83036; 84443; 85025

== ENCOUNTER → 2024-12-30 | Outpatient (CLI) | payer MEDICARE, OTHER, SELFPAY ==
--- NOTE | 2024-12-30 09:52 | CDU_ITS ---
Reason For Study Reason For Study: DIZZINESS Rt. Velocities/BP Lt. Velocities/BP Prox CCA 101.6/12.1 cm/sec. Prox CCA 146.2/14.5 cm/sec. Mid CCA 114.3/10.2 cm/sec. Mid CCA 73.2./10.6 cm/sec. Dist CCA 72.3/12.1 cm/sec. Dist CCA 93.5/16.7 cm/sec. Prox ICA 66.8/5.8 cm/sec. Prox ICA 137.4/12.3 cm/sec. Mid ICA 73.1/14.7 cm/sec. Mid ICA 89.1/18.9 cm/sec. Dist ICA 113.4/21.1 cm/sec. Dist ICA 92.4/13.9 cm/sec. Rt. ICA/CCA = 1.0. Lt. ICA/CCA = 1.9. Prox ECA 103.4/0.0 cm/sec. Prox ECA 63.4/0.0 cm/sec. Rt. Vert. 42.4/7.3 cm/sec. Lt. Vert. 76.0/10.2 cm/sec. Right Extracranial There is intimal thickening but no significant atherosclerotic plaque noted in the right common carotid artery. There is intimal thickening but no significant atherosclerotic plaque noted in the right internal carotid artery. There is intimal thickening but no significant atherosclerotic plaque noted in the right external carotid artery. Antegrade flow is noted in the right vertebral artery. Left Extracranial There is intimal thickening but no significant atherosclerotic plaque noted in the left common carotid artery. The atherosclerotic plaque causes acoustic shadowing. There is intimal thickening but no significant atherosclerotic plaque noted in the left internal carotid artery. There is intimal thickening but no significant atherosclerotic plaque noted in the left external carotid artery. Antegrade flow is noted in the left vertebral artery. Procedure Carotid Duplex [id number]. This is a Carotid Duplex examination using B-mode, color flow and specral Doppler. Exam performed in department. VL/Carotid Duplex Ultrasound Interpretation Summary Normal right extracranial internal carotid. Normal left extracranial internal carotid. Patent and antegrade vertebrals bilaterally. Ordering Physician: Elizabeth Gaytan Referring Physician: Brannon Mckeon Chi Performed By: Toshia Campbell RVT and Student
== END | disposition home or self-care (01) ==
PROVIDERS: PCP Family Medicine Geriatric Medicine; Referring Provider Physician Assistant Medical; Visit Provider Physician Assistant Medical
DX: R42 Dizziness and giddiness (principal)
CPT/HCPCS: 93880

== ENCOUNTER → 2025-10-12 | Outpatient (CLI) | payer MEDICARE, OTHER, SELFPAY ==
--- NOTE | 2025-10-12 08:58 | ECHOD_ITS ---
Reason For Study Reason For Study: PVCs Procedure This was a 2D Doppler, Color Flow transthoracic echocardiogram. The study was technically difficult. Exam performed in department. Left Ventricle Normal LV size. Left ventricular systolic function is normal. The left ventricular ejection fraction is 70 %. No regional wall motion abnormalities noted. Right Ventricle Normal RV size. Normal systolic function. Atria The left atrium is mildly enlarged. Normal right atrium. Mitral Valve There is moderate mitral annular calcification. Mild (1+) eccentric mitral valve insufficiency. Tricuspid Valve Normal tricuspid valve. Mild (1+) tricuspid valve insufficiency. Pulmonary artery systolic pressure is 25 mmHg. Aortic Valve Trisinus/trileaflet aortic valve. Pulmonic Valve Normal pulmonic valve. Great Vessels Normal aortic root. The pulmonary artery is normal size. Inferior vena cava collapse with respiration. Pericardium/Pleural No pericardial effusion. MMode/2D Measurements & Calculations LVIDd: 4.9 cm IVSd: 1.1 cm Ao root diam: 3.5 cm LVIDs: 3.2 cm LVPWd: 1.1 cm RVDd: 2.6 cm FS: 35.4 % LAV(MOD-bp): 68.5 ml LVAd ap4: 26.6 cm2 SV(MOD-sp4): 57.2 ml LAV(MOD-bp) Indexed: 36.5 ml/m2 LVLd ap4: 7.6 cm SI(MOD-sp4): 30.5 ml/m2 LAV(MOD-sp2): 64.8 ml EDV(MOD-sp4): 78.1 ml LAV(MOD-sp4): 65.3 ml EDV(sp4-el): 78.8 ml LVAs ap4: 12.1 cm2 LVLs ap4: 6.3 cm ESV(MOD-sp4): 21.0 ml ESV(sp4-el): 19.6 ml EF(MOD-sp4): 73.2 % EF(sp4-el): 75.1 % SV(sp4-el): 59.2 ml LA A4 area: 22.3 cm2 LA dimension(2D): 3.5 cm RA A4 area: 13.5 cm2 TAPSE: 2.1 cm Time Measurements MV dec time: 0.25 sec Doppler Measurements & Calculations MV E max kwame: 79.2 cm/sec Lat Peak E' Kwame: 9.0 cm/sec Med Peak E' Kwame: 7.9 cm/sec MV A max kwame: 95.1 cm/sec E/E' lat: 8.8 E/E' med: 10.0 MV E/A: 0.83 MV V2 max: 99.0 cm/sec MV P1/2t max kwame: 86.4 cm/sec Ao V2 max: 171.7 cm/sec MV max P.9 mmHg MV P1/2t: 91.2 msec Ao max P.8 mmHg MV V2 mean: 51.3 cm/sec Ao V2 mean: 111.5 cm/sec MV mean P.2 mmHg MV dec slope: 277.5 cm/sec2 Ao mean P.8 mmHg MV V2 VTI: 30.9 cm MVA(P1/2t): 2.4 cm2 Ao V2 VTI: 39.9 cm AV (velocity ratio): 0.77 LV V1 max: 118.0 cm/sec PA V2 max: 110.0 cm/sec TR max kwame: 238.2 cm/sec LV V1 max P.6 mmHg TR max P.7 mmHg LV V1 mean P.9 mmHg LV V1 mean: 79.2 cm/sec LV V1 VTI: 30.7 cm ECHO/Echo Complete Interpretation Summary Normal LV size. Left ventricular systolic function is normal. The left ventricular ejection fraction is 70 %. Pulmonary artery systolic pressure is 25 mmHg. Ordering Physician: Silviano Burnette Referring Physician: Brannon Mckeon Chi Performed By: America Jamil, ANTONIACS, RVT
== END | disposition home or self-care (01) ==
LOC: CVS 08:57
PROVIDERS: PCP Family Medicine Geriatric Medicine; Referring Provider Nurse Practitioner Family; Visit Provider Nurse Practitioner Family
DX: I49.3 Ventricular premature depolarization (principal)
CPT/HCPCS: 93306